=== PATIENT | male | born 1975 | race Caucasian/White ===

== ENCOUNTER → 2018-09-19 | Outpatient (CLI) | payer OTHER ==
[~2018-09-19] VITALS: Ht 172.7 cm; Wt 115.5 kg
== END ==
LOC: SUN.CLI 15:00
DX: Z76.89 Persons encountering health services in other specified circumstances (principal); E66.01 Morbid (severe) obesity due to excess calories; Z68.41 Body mass index [BMI] 40.0-44.9, adult; Z71.3 Dietary counseling and surveillance